=== PATIENT | male | born 1990 | race Hispanic/Latino ===

== ENCOUNTER 2018-09-23 01:37 | Emergency (ER) | payer SELFPAY ==
[2018-09-23 01:58] LABS: #Basophils 0.1 thou/uL (0.0-0.2); #Eosinphils 0.1 thou/uL (0.0-0.7); #Monocytes 0.8 thou/uL (0.11-0.59); #Neutrophils 5.3 thou/uL (1.40-6.50); %Basophils 0.6 % (0.0-1.0); %Eosinophils 0.5 % (0.0-10.0); %Lymphocytes 39.5 % (21.0-51.0); %Monocytes 7.3 % (0.0-10.0); %Neutrophils 52.1 % (42.0-75.0); Hemoglobin 17.7 g/dL (14.0-18.0); Mean Corpuscular HGB CONC 33.8 g/dL (32.0-36.0); Mean Corpuscular Hemoglobin 31.4 pg (27.0-31.0); Mean Corpuscular Volume 92.8 fL (78.0-98.0); Mean Platelet Volume 9.8 fL (7.4-10.4); Platelet Count 204 thou/uL (130-400); RBC Distribution Width 11.8 % (11.5-14.5); Red Blood Cell (RBC) Count 5.64 mill/uL (4.70-6.10); White Blood Cell (WBC) Count 10.2 thou/uL (4.8-10.8)
[2018-09-23 03:15] LABS: ALT (SGPT) 96 U/L (8-55); AST (SGOT) 47 U/L (5-34); Albumin 5.2 g/dL (3.5-5.0); Alcohol 282 mg/dL (Less than 10); Alkaline Phosphatase 72 U/L (40-150); Anion Gap 17 mmol/L (10-20); BUN (Urea Nitrogen) 12 mg/dL (8.9-20.6); Bilirubin, Total 0.6 mg/dL (0.2-1.2); Calc. Creatinine Clearance 0 mL/min (70-130); Calcium 9.6 mg/dL (7.8-10.44); Carbon Dioxide 20 mmol/L (22-29); Chloride 108 mmol/L (98-107); Estimated GFR-MDRD Greater than 90; Globulin 2.8 g/dL (2.4-3.5); Glucose 99 mg/dL (70-105); Potassium 3.5 mmol/L (3.5-5.1); Sodium 141 mmol/L (136-145)
[2018-09-23] MEDS ORDERED: Adacel (T-DAP) 0.5 ML SYRINGE ONE (03:44)
[2018-09-23] MEDS ORDERED: Proparacaine 0.5% Opth 15 ML BOT ONE (04:54)
[2018-09-23] MEDS ORDERED: Fluorescein Opthalmic Strip ONE (04:54)
--- NOTE | 2018-09-23 08:56 | CT ---
FINAL REPORT CT CHEST AND ABDOMEN AND PELVIS WITH CONTRAST LIMITED CTS OF THORACIC AND LUMBOSACRAL SPINES: TECHNIQUE: 1. Multiple contiguous axial images were obtained in a CT of the chest with contrast. Coronal refor mats were performed. 2. Multiple contiguous axial images were obtained in a CT of the abdomen and pelvis with contrast. Coronal reformats were performed. 3. Limited CTs of the thoracic and lumbosacral spines were performed. Sagittal and coronal reformat s were created based off images obtained of the chest, abdomen, and pelvic CTs. FINDINGS/IMPRESSION: I agree with the findings and impression given in the preliminary report per [facility] physician. 1. No evidence of acute intrathoracic abnormality. 2. No evidence of acute intraabdominal/pelvic abnormality. 3. Fatty liver. 4. No evidence of acute osseous abnormality o the thoracic or lumbosacral spine. POS: [facility]
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
[2018-09-23] MEDS ORDERED: ISOVUE-370 76%-LOCM 1 ML ONE (13:09)
== END 2018-09-23 05:13 ==
LOC: ERS 01:37
DX: S00.81XA Abrasion of other part of head, initial encounter (principal); S05.02XA Injury of conjunctiva and corneal abrasion without foreign body, left eye, initial encounter; R94.5 Abnormal results of liver function studies; F10.129 Alcohol abuse with intoxication, unspecified; V49.9XXA Car occupant (driver) (passenger) injured in unspecified traffic accident, initial encounter
CPT/HCPCS: 36415; 70450; 71260; 72125; 74177; 80053; 80307; 85025; 86850; 86900; 86901; 90471; 90715; 96360; G0390; Q9966